=== PATIENT | male | born 1995 | race Two or more races ===

== ENCOUNTER 2020-11-04 12:09 | Inpatient (IN) | payer MEDICAID ==
[~2020-11-04] VITALS: Ht 162.6 cm; Wt 81.2 kg
[2020-11-04] MEDS: OLANZapine 5 MG TABLET PO SCH ×2 (12:45→16:59)
[2020-11-04] MEDS ORDERED: HALOPERIDOL 5 MG TABLET PO PRN (12:45)
[2020-11-04] MEDS ORDERED: ZOLPIDEM TARTRATE 10 MG TABLET PO PRN (12:45)
[2020-11-04 15:23] VITALS: BP 105/59
[2020-11-04 15:25] VITALS: BP 105/59
[2020-11-04 16:01] VITALS: BP 103/69
[2020-11-04] MEDS ORDERED: GuaiFENesin/D-METHORPHAN [SUGAR-FREE] 200-20MG/10 ML SYRUP UDCUP PO PRN (20:30)
[2020-11-04] MEDS ORDERED: NICOTINE 14 MG/24 HOUR PATCH TD PRN (20:30)
[2020-11-04] MEDS ORDERED: ALBUTEROL SULFATE HFA 90 MCG/PUFF 8 GM INHALER IH PRN (20:30)
[2020-11-04] MEDS ORDERED: MAGNESIUM HYDROXIDE SUSPENSION 30 ML UDCUP PO PRN (20:30)
[2020-11-04] MEDS ORDERED: DOCUSATE SODIUM 100 MG CAPSULE PO PRN (20:30)
[2020-11-04] MEDS ORDERED: MAG HYDROX/AL HYDROX/SIMETH ES 30 ML SUSPENSION UDCUP PO PRN (20:30)
[2020-11-04] MEDS ORDERED: IBUPROFEN 400 MG TABLET PO PRN (20:30)
[2020-11-04] MEDS ORDERED: CloNIDine HCL 0.1 MG TABLET PO PRN (20:30)
[2020-11-04] MEDS ORDERED: ONDANSETRON HCL 4 MG TABLET PO PRN (20:30)
[2020-11-04] MEDS ORDERED: ACETAMINOPHEN 325 MG TABLET PO PRN (20:30)
[2020-11-04] MEDS ORDERED: PETROLATUM,WHITE 28 GM JELLY TP PRN (20:30)
[2020-11-04] MEDS ORDERED: LOPERAMIDE HCL 2 MG CAPSULE PO PRN (20:30)
[2020-11-05 06:37] VITALS: BP 105/61
[2020-11-05] MEDS: LORazepam 2 MG TABLET PO PRN (08:46)
[2020-11-05] MEDS: OLANZapine 5 MG TABLET PO SCH (08:46)
[2020-11-05 16:17] VITALS: BP 109/68
[2020-11-05] MEDS: OLANZapine 10 MG TABLET PO SCH (17:20)
[2020-11-06] MEDS: LORazepam 2 MG TABLET PO PRN ×2 (09:43→16:42)
[2020-11-06] MEDS: OLANZapine 10 MG TABLET PO SCH ×2 (09:43→16:42)
[2020-11-06 16:07] VITALS: BP 113/70
[2020-11-07 05:22] VITALS: BP 112/66
[2020-11-07] MEDS: LORazepam 2 MG TABLET PO PRN ×2 (09:05→16:58)
[2020-11-07] MEDS: OLANZapine 10 MG TABLET PO SCH ×2 (09:05→16:58)
[2020-11-07 16:13] VITALS: BP 118/72
[2020-11-08 00:32] VITALS: BP 129/86
[2020-11-08 08:27] VITALS: BP 105/78
[2020-11-08] MEDS: OLANZapine 10 MG TABLET PO SCH ×2 (09:11→16:58)
[2020-11-08 16:27] VITALS: BP 110/79
[2020-11-08] MEDS: LORazepam 2 MG TABLET PO PRN (16:58)
[2020-11-09 00:19] VITALS: BP 108/68
[2020-11-09 08:31] VITALS: BP 102/68
[2020-11-09] MEDS: LORazepam 2 MG TABLET PO PRN (08:42)
[2020-11-09] MEDS: OLANZapine 10 MG TABLET PO SCH ×2 (08:42→16:51)
[2020-11-09 19:24] VITALS: BP 94/62
[2020-11-10 03:11] VITALS: BP 131/87
[2020-11-10] MEDS: LORazepam 2 MG TABLET PO PRN ×2 (08:40→16:40)
[2020-11-10] MEDS: OLANZapine 10 MG TABLET PO SCH ×2 (08:40→16:40)
[2020-11-10 09:18] VITALS: BP 127/88
[2020-11-10 16:23] VITALS: BP 120/78
[2020-11-10] MEDS ORDERED: OLANZapine 7.5 MG TABLET PO SCH (21:00)
[2020-11-11 04:18] VITALS: BP 122/74
[2020-11-11 08:38] VITALS: BP 124/72
[2020-11-11] MEDS: OLANZapine 10 MG TABLET PO SCH ×2 (09:01→16:23)
[2020-11-11] MEDS: LORazepam 2 MG TABLET PO PRN ×2 (09:02→16:23)
[2020-11-11 16:14] VITALS: BP 87/51
[2020-11-12 00:53] VITALS: BP 129/82
[2020-11-12 08:41] VITALS: BP 94/61
[2020-11-12] MEDS: LORazepam 2 MG TABLET PO PRN ×2 (08:47→16:48)
[2020-11-12] MEDS: OLANZapine 10 MG TABLET PO SCH ×2 (08:47→16:48)
[2020-11-12 16:23] VITALS: BP 116/83
[2020-11-13 01:19] VITALS: BP 111/75
[2020-11-13 08:42] VITALS: BP 105/70
[2020-11-13] MEDS: OLANZapine 10 MG TABLET PO SCH ×2 (09:40→17:36)
[2020-11-13] MEDS: LORazepam 2 MG TABLET PO PRN (09:41)
[2020-11-13 16:09] VITALS: BP 109/70
[2020-11-14 08:40] VITALS: BP 97/61
[2020-11-14] MEDS: OLANZapine 10 MG TABLET PO SCH ×2 (08:49→17:41)
[2020-11-14 16:22] VITALS: BP 120/84
[2020-11-15 06:01] VITALS: BP 110/77
[2020-11-15 08:00] VITALS: BP 102/61
[2020-11-15] MEDS: OLANZapine 10 MG TABLET PO SCH ×2 (08:41→16:37)
[2020-11-15 16:11] VITALS: BP 126/88
[2020-11-16] MEDS: OLANZapine 10 MG TABLET PO SCH ×2 (08:39→16:36)
[2020-11-16 09:04] VITALS: BP 114/67
[2020-11-16 16:56] VITALS: BP 116/79
[2020-11-17 06:00] VITALS: BP 100/62
[2020-11-17 08:35] VITALS: BP 124/80
[2020-11-17] MEDS: OLANZapine 10 MG TABLET PO SCH ×2 (08:43→16:18)
[2020-11-17] MEDS ORDERED: OLAN10TA74 PO (10:36)
[2020-11-17 16:13] VITALS: BP 127/84
== END 2020-11-17 16:46 | disposition home or self-care (01) | DRG 750 ==
LOC: B3A 14:23
PROVIDERS: ADMIT Psychiatry & Neurology Psychiatry; ATTEND Psychiatry & Neurology Psychiatry
DX: F20.0 Paranoid schizophrenia (principal); I95.9 Hypotension, unspecified; F10.10 Alcohol abuse, uncomplicated; F19.10 Other psychoactive substance abuse, uncomplicated; Z79.899 Other long term (current) drug therapy
CPT/HCPCS: Z7610